=== PATIENT | female | born 1990 | race Caucasian/White ===

== ENCOUNTER 2016-10-07 19:20 | Emergency (ER) | payer MEDICAID, OTHER ==
[~2016-10-07] VITALS: Ht 154.9 cm; Wt 79.9 kg
[2016-10-07 19:32] VITALS: BP 142/76
--- NOTE | 2016-10-07 19:55 | NUR ---
PT TAKEN TO BED 8
--- NOTE | 2016-10-07 20:00 | NUR ---
26 Y/O F W/C/O LOWER BACK, UPPER ABD AND LOWER R ABD PAIN X 1 WK ON AND OFF. PT DENIES ANY FEVER, CHILLS, PAIN WITH URINATION, N/V, VAGINAL DISCHARGE OR BLEEDING. PT STATES WAS TOLD BY PMD LAST WK SHE IS 7 WKS . NO S/S OF DISTRESS NOTEDM, ER MADE AWARE.
--- NOTE | 2016-10-07 20:14 | NUR ---
Dr. Terry evaluating patient at bedside.
[2016-10-07 20:36] LABS: BILIRUBIN,URINE NEGATIVE (NEGATIVE); BLOOD, URINE NEGATIVE (NEGATIVE); COLOR,URINE YELLOW (YELLOW); LEUKOCYTE ESTERASE ,URINE 1+ (NEGATIVE); NITRITE, URINE NEGATIVE (NEGATIVE); PROTEIN,URINE NEGATIVE (NEGATIVE); UGLUCOSE NEGATIVE (NEGATIVE); UROBILINOGEN,URINE 0.2 EU/dL (0.2 - 1)
[2016-10-07 20:38] LABS: APPEARANCE,URINE HAZY (CLEAR)
[2016-10-07 20:51] LABS: BACTERIA,URINE 1+ /HPF (None Seen); RBC,URINE NONE SEEN /HPF (0-5); SQUAMOUS EPITHELIAL CELL,UR 4-10 (MOD) /LPF (0-3 (FEW)); WBC,URINE 0-5 (RARE) /HPF (0-5)
--- NOTE | 2016-10-07 21:06 | NUR ---
PT RETURN FROM ULTRA SOUND
[2016-10-07 21:42] VITALS: BP 135/72
--- NOTE | 2016-10-07 21:42 | NUR ---
Patient discharged with v/s stable. Written and verbal after care instructions given and explained. Patient verbalized understanding. Ambulatory with steady gait. All questions addressed prior to discharge. Advised to follow up with PMD TOMORROW, OR RETURN TO ER IF CONDITION WORSENS.
== END 2016-10-07 21:42 | disposition home or self-care (01) ==
LOC: MED 19:20
DX: O26.891 Other specified pregnancy related conditions, first trimester (principal); R10.84 Generalized abdominal pain; R19.7 Diarrhea, unspecified
CPT/HCPCS: 76801; 81001; 81025; 87086; 99285

== ENCOUNTER 2017-03-05 17:02 | Emergency (ER) | payer OTHER ==
[~2017-03-05] VITALS: Ht 154.9 cm; Wt 78.0 kg
[2017-03-05 17:08] VITALS: BP 120/79
--- NOTE | 2017-03-05 17:15 | NUR ---
PT TAKEN TO 11.
--- NOTE | 2017-03-05 17:35 | NUR ---
ABD PAIN, LOWER BACK PAIN,HEADACHE, N/V, FEVER AND CHILLS X2 WEEKS . DENIES D; SKIN IS PINK/WARM/DRY; AAOX4 WITH EVEN AND STEADY GAIT; LUNGS CLEAR BL; HR EVEN AND REGULAR; PT DENIES ANY FEVER, CP, SOB, OR COUGH AT THIS TIME; PATIENT STATES PAIN OF 9/10 AT THIS TIME; VSS; PATIENT POSITIONED FOR COMFORT; HOB ELEVATED; BEDRAILS UP X2; BED DOWN. ER MD MADE AWARE OF PT STATUS.
[2017-03-05 17:48] LABS: BASOPHILS # (AUTO) 0.5 K/uL (0.00-0.22); EOSINOPHILS # (AUTO) 0.1 K/uL (0-0.4); HEMATOCRIT 38.3 % (36-48); HEMOGLOBIN 13.1 g/dL (12.0-16.0); LYMPHOCYTES # (AUTO) 1.6 K/uL (2.5-16.5); MEAN CORPUSCULAR HEMOGLOBIN 32 pg (27-31); MEAN CORPUSCULAR HGB CONC 34 g/dL (33-37); MEAN CORPUSCULAR VOLUME 92 fL (80-94); MONOCYTES # (AUTO) 0.5 K/uL (0.8-1.0); NEUTROPHILS # (AUTO) 4.7 K/uL (1.8-7.7); PLATELET COUNT (AUTO) 236 K/uL (140-450); RED BLOOD CELL COUNT(AUTO) 4.15 MIL/uL (4.20-5.40); RED CELL DISTRIBUTION WIDTH 11.6 % (11.6-13.7); WHITE BLOOD COUNT (AUTO) 7.4 K/uL (4.8-10.8)
[2017-03-05 17:56] LABS: BILIRUBIN,URINE NEGATIVE (NEGATIVE); BLOOD, URINE NEGATIVE (NEGATIVE); COLOR,URINE YELLOW (YELLOW); LEUKOCYTE ESTERASE ,URINE 2+ (NEGATIVE); NITRITE, URINE NEGATIVE (NEGATIVE); UGLUCOSE NEGATIVE (NEGATIVE)
[2017-03-05 18:02] LABS: ANION GAP 14.4 (8-16); CARBON DIOXIDE 24.5 mmol/L (21-32); CREATININE 0.7 mg/dL (0.6-1.3); POTASSIUM 3.9 mmol/L (3.5-5.1)
[2017-03-05 18:02] LABS: APPEARANCE,URINE HAZY (CLEAR)
[2017-03-05 18:09] LABS: ALBUMIN 3.9 g/dL (3.4-5.0); TOTAL BILIRUBIN 0.2 mg/dL (0.0-1.0)
[2017-03-05 18:11] LABS: RBC,URINE NONE SEEN /HPF (0-5)
[2017-03-05] MEDS ORDERED: ONDANSETRON 4 MG ODT PO ONE (18:15)
[2017-03-05 18:40] VITALS: BP 125/78
--- NOTE | 2017-03-05 18:40 | NUR ---
Patient discharged with v/s stable. Written and verbal after care instructions given and explained. Patient alert, oriented and verbalized understanding of instructions. Ambulatory with steady gait. All questions addressed prior to discharge. ID band removed. Patient advised to follow up with PMD. Rx of ZOFRAN AND MACROBID given. Patient educated on indication of medication including possible reaction and side effects. Opportunity to ask questions provided and answered.
== END 2017-03-05 18:40 | disposition home or self-care (01) ==
LOC: MED 17:02
DX: O23.41 Unspecified infection of urinary tract in pregnancy, first trimester (principal); Z3A.09 9 weeks gestation of pregnancy
CPT/HCPCS: 36415; 76801; 80053; 81001; 81025; 84702; 85025; 86900; 86901; 87086; 99285; Q0092; S0119

== ENCOUNTER 2021-03-01 19:24 | Emergency (ER) | payer OTHER ==
[~2021-03-01] VITALS: Ht 152.4 cm; Wt 78.1 kg
[2021-03-01 19:40] VITALS: BP 133/68
--- NOTE | 2021-03-01 19:43 | NUR ---
to lobby a/w bed ambulatory
== END 2021-03-01 21:37 | disposition left against medical advice (07) ==
LOC: MED 19:24
DX: M54.50 Low back pain, unspecified (principal); Z53.21 Procedure and treatment not carried out due to patient leaving prior to being seen by health care provider
CPT/HCPCS: 81002; 81025